=== PATIENT | male | born 1970 | race Caucasian/White ===

== ENCOUNTER 2017-06-18 16:53 | Inpatient (IN) | payer BC, OTHER ==
[~2017-06-18] VITALS: Ht 177.8 cm; Wt 73.2 kg
[2017-06-18] MEDS ORDERED: ASPIRIN 81 MG TABLET CHEW PO ONE (17:00)
[2017-06-18] MEDS ORDERED: SODIUM CHLORIDE FLUSH 10ML SYR IVF ONE (17:00)
[2017-06-18] MEDS ORDERED: ONDANSETRON 2MG/ML, 2ML ONE (17:20)
[2017-06-18] MEDS ORDERED: ASPIRIN 81 MG TABLET CHEW ONE (17:21)
[2017-06-18] MEDS ORDERED: MORPHINE SULFATE 4 MG/ML, 1ML ONE (17:21)
[2017-06-18] MEDS ORDERED: LORazepam 2 MG/ML, 1ML ONE (17:21)
[2017-06-18] MEDS ORDERED: LORazepam 2 MG/ML, 1ML IVPush ONE (17:30)
[2017-06-18] MEDS ORDERED: MORPHINE SULFATE 4 MG/ML, 1ML IVPush PRN (17:30)
[2017-06-18 17:34] LABS: BASOPHILS # (AUTO) 0.08 x10^3/uL (0-0.1); BASOPHILS % (AUTO) 1 % (0-1); EOSINOPHILS # (AUTO) 0.21 x10^3/uL (0-0.4); EOSINOPHILS % (AUTO) 1 % (1-7); LYMPHOCYTES # (AUTO) 3.64 x10^3/uL (1-3.4); LYMPHOCYTES % (AUTO) 23 % (22-44); MD NO; MEAN CORPUSCULAR HEMOGLOBIN 33.6 pg (27.5-34.5); MEAN CORPUSCULAR HGB CONC 33.7 g/dL (33.2-36.2); MEAN CORPUSCULAR VOLUME 99.6 fL (81-97); MEAN PLATELET VOLUME 8.6 fL (7.4-10.4); MONOCYTES # (AUTO) 1.03 x10^3/uL (0.2-0.8); MONOCYTES % (AUTO) 6 % (2-9); NEUTROPHILS # (AUTO) 11.13 x10^3/uL (1.8-6.8); NEUTROPHILS % (AUTO) 69 % (42-75); PLATELET COUNT 253 x10^3/uL (130-400); RED BLOOD COUNT 5.52 x10^6/uL (4.38-5.82); RED CELL DISTRIBUTION WIDTH 12.9 % (9.4-14.8)
[2017-06-18] MEDS ORDERED: EFAV1TAB PO (17:36)
[2017-06-18 17:46] LABS: ALANINE AMINOTRANSFERASE 62 U/L (12-78); ANION GAP 9 mmol/L (5-15); CALCIUM 9.4 mg/dL (8.5-10.1); CHLORIDE 103 mmol/L (98-107); CREATININE 1.17 mg/dL (0.7-1.3)
[2017-06-18 17:51] LABS: ALKALINE PHOSPHATASE 137 U/L (45-117); BILIRUBIN,TOTAL 0.4 mg/dL (0.2-1.0); TOTAL PROTEIN 8.7 g/dL (6.4-8.2)
[2017-06-18 17:52] LABS: TROPONIN I 0.368 ng/mL (0.000-0.045)
[2017-06-18] MEDS ORDERED: BIVALIRUDIN 250 MG ONE ×2 (18:00→18:57)
[2017-06-18] MEDS ORDERED: ONDANSETRON 2MG/ML, 2ML IVPush ONE (18:00)
[2017-06-18] MEDS ORDERED: FENTANYL PF 100 MCG/2ML ONE (18:00)
[2017-06-18] MEDS ORDERED: VERAPAMIL 2.5 MG/ML, 2ML ONE (18:00)
[2017-06-18] MEDS ORDERED: TICAGRELOR 90 MG TABLET ONE (18:00)
[2017-06-18] MEDS ORDERED: MIDAZOLAM 1 MG/ML, 5ML ONE (18:00)
[2017-06-18] MEDS ORDERED: BUPIVACAINE 0.25% ONE (18:01)
[2017-06-18] MEDS ORDERED: HEPARIN 1,000 UNITS/ML, 10ML ONE (18:01)
[2017-06-18] MEDS ORDERED: ASPIRIN 325 MG TABLET EC ONE (18:45)
[2017-06-18] MEDS ORDERED: BIVALIRUDIN 250 MG in DEXTROSE 5% 50 ML IV SCH (18:48)
[2017-06-18 18:56] VITALS: BP 100/73
[2017-06-18] MEDS ORDERED: ONDANSETRON 2MG/ML, 2ML IVPush PRN (19:00)
[2017-06-18] MEDS ORDERED: ZOLPIDEM 5MG TABLET PO PRN (19:00)
[2017-06-18] MEDS ORDERED: ACETAMINOPHEN 325 MG TABLET PO PRN (19:00)
[2017-06-18] MEDS: METOPROLOL TARTRATE 25 MG TABLET PO SCH (20:24)
[2017-06-18] MEDS: ATORVASTATIN 80 MG TABLET PO SCH (20:55)
[2017-06-18] MEDS: TICAGRELOR 90 MG TABLET PO SCH (20:56)
[2017-06-18] MEDS: EFAVIRENZ/EMTRICITAB/TENOFOVIR 600MG-200MG-300MG TABLET PO SCH (20:56)
[2017-06-18 21:08] VITALS: BP 106/73
[2017-06-19 04:00] VITALS: BP 91/60
[2017-06-19 04:44] LABS: ALBUMIN 3.4 g/dL (3.4-5.0); ANION GAP 6 mmol/L (5-15); CALCIUM 8.6 mg/dL (8.5-10.1); CHLORIDE 107 mmol/L (98-107); CREATININE 0.99 mg/dL (0.7-1.3)
[2017-06-19] MEDS: METOPROLOL TARTRATE 25 MG TABLET PO SCH ×3 (06:26→20:34)
[2017-06-19] MEDS: TICAGRELOR 90 MG TABLET PO SCH ×2 (08:07→21:39)
[2017-06-19] MEDS: ASPIRIN 81 MG TABLET EC PO SCH (08:07)
[2017-06-19] MEDS: NICOTINE 21 MG/24 HR PATCH.TD24 TD SCH (08:07)
[2017-06-19] MEDS ORDERED: LOSARTAN 25MG TABLET PO SCH (11:00)
[2017-06-19 11:10] VITALS: BP 113/76
[2017-06-19 12:42] VITALS: BP 125/79
[2017-06-19 18:20] VITALS: BP 86/61
[2017-06-19 19:48] VITALS: BP 84/56
[2017-06-19] MEDS: ATORVASTATIN 80 MG TABLET PO SCH (21:39)
[2017-06-19] MEDS: EFAVIRENZ/EMTRICITAB/TENOFOVIR 600MG-200MG-300MG TABLET PO SCH (21:39)
[2017-06-20 01:15] VITALS: BP 91/60
[2017-06-20 05:34] LABS: BASOPHILS # (AUTO) 0.02 x10^3/uL (0-0.1); BASOPHILS % (AUTO) 0 % (0-1); EOSINOPHILS # (AUTO) 0.19 x10^3/uL (0-0.4); EOSINOPHILS % (AUTO) 2 % (1-7); LYMPHOCYTES # (AUTO) 2.09 x10^3/uL (1-3.4); LYMPHOCYTES % (AUTO) 17 % (22-44); MD NO; MEAN CORPUSCULAR HEMOGLOBIN 33.1 pg (27.5-34.5); MEAN CORPUSCULAR HGB CONC 33.5 g/dL (33.2-36.2); MEAN CORPUSCULAR VOLUME 98.9 fL (81-97); MEAN PLATELET VOLUME 8.7 fL (7.4-10.4); MONOCYTES # (AUTO) 0.86 x10^3/uL (0.2-0.8); MONOCYTES % (AUTO) 7 % (2-9); NEUTROPHILS # (AUTO) 9.21 x10^3/uL (1.8-6.8); NEUTROPHILS % (AUTO) 74 % (42-75); PLATELET COUNT 186 x10^3/uL (130-400); RED BLOOD COUNT 4.97 x10^6/uL (4.38-5.82); RED CELL DISTRIBUTION WIDTH 12.6 % (9.4-14.8)
[2017-06-20 05:43] LABS: ANION GAP 6 mmol/L (5-15); CALCIUM 8.7 mg/dL (8.5-10.1); CHLORIDE 106 mmol/L (98-107)
[2017-06-20 06:14] VITALS: BP 95/65
[2017-06-20] MEDS: METOPROLOL TARTRATE 25 MG TABLET PO SCH ×2 (06:21→17:52)
[2017-06-20 07:00] VITALS: BP 89/57
[2017-06-20] MEDS: ASPIRIN 81 MG TABLET EC PO SCH (08:17)
[2017-06-20] MEDS: TICAGRELOR 90 MG TABLET PO SCH ×2 (08:17→21:18)
[2017-06-20] MEDS: NICOTINE 21 MG/24 HR PATCH.TD24 TD SCH (08:18)
[2017-06-20] MEDS ORDERED: LOSARTAN 25MG TABLET PO SCH (09:00)
[2017-06-20] MEDS: LOSARTAN 25MG TABLET PO SCH (11:00)
[2017-06-20 15:52] VITALS: BP 98/65
[2017-06-20 17:53] VITALS: BP 100/54
[2017-06-20 21:16] VITALS: BP 98/65
[2017-06-20] MEDS: EFAVIRENZ/EMTRICITAB/TENOFOVIR 600MG-200MG-300MG TABLET PO SCH (21:18)
[2017-06-20] MEDS: ATORVASTATIN 80 MG TABLET PO SCH (21:18)
[2017-06-21 01:35] VITALS: BP 104/70
[2017-06-21 06:28] VITALS: BP 100/65
[2017-06-21] MEDS: METOPROLOL TARTRATE 25 MG TABLET PO SCH (06:29)
[2017-06-21] MEDS: TICAGRELOR 90 MG TABLET PO SCH ×2 (07:27→18:55)
[2017-06-21] MEDS: LOSARTAN 25MG TABLET PO SCH (07:27)
[2017-06-21] MEDS: ASPIRIN 81 MG TABLET EC PO SCH (07:27)
[2017-06-21] MEDS: NICOTINE 21 MG/24 HR PATCH.TD24 TD SCH (07:27)
[2017-06-21 08:00] VITALS: BP 106/73
[2017-06-21] MEDS ORDERED: METOPROLOL TARTRATE 25 MG TABLET PO SCH ×2 (13:00→18:00)
[2017-06-21 13:12] VITALS: BP 100/69
[2017-06-21 15:13] VITALS: BP 103/70
[2017-06-21] MEDS ORDERED: TICA90TA PO (16:59)
[2017-06-21] MEDS ORDERED: ATOR-2 PO (16:59)
[2017-06-21] MEDS ORDERED: LOSA25TA2 PO (16:59)
[2017-06-21] MEDS ORDERED: ASPI-621 PO (16:59)
[2017-06-21] MEDS ORDERED: METO25TA35 PO (16:59)
[2017-06-21 18:42] VITALS: BP 99/64
[2017-06-21] MEDS: ATORVASTATIN 80 MG TABLET PO SCH (18:55)
== END 2017-06-21 19:25 | disposition home or self-care (01) | DRG 247 ==
LOC: ED 17:50 → EDIP 17:51 → ED 18:51 → CCU 18:57 → 5SO 06-19 11:10
PROVIDERS: ADMIT Internal Medicine Cardiovascular Disease; ATTEND Hospitalist
PROC: 027034Z Dilation of Coronary Artery, One Artery with Drug-eluting Intraluminal Device, Percutaneous Approach (ICD-10-PCS; principal; 2017-06-18)
DX: I21.09 ST elevation (STEMI) myocardial infarction involving other coronary artery of anterior wall (principal); I47.2 Ventricular tachycardia; F17.210 Nicotine dependence, cigarettes, uncomplicated; Z82.49 Family history of ischemic heart disease and other diseases of the circulatory system; Z98.61 Coronary angioplasty status; Z71.6 Tobacco abuse counseling
CPT/HCPCS: 36415; 71045; 80048; 80053; 82040; 83735; 84484; 85018; 85025; 87081; 93005; 93306; 93454; 96374; 96375; 99156; C1760; C1894; J0583; J1644; J2250; J2405; J3010; J3490; C1725; C1769; C1874; C1887; J2060; Q9967

== ENCOUNTER 2020-01-17 23:48 | Inpatient (IN) | payer BC, OTHER ==
[~2020-01-17] VITALS: Ht 177.8 cm; Wt 75.5 kg
[~2020-01-17 23:48] MED LIST: ASPI81TA45 PO; ATOR-2 PO; EFAV1TAB PO; LOSA25TA2 PO; METO25TA35 PO; TICA90TA PO
[2020-01-17] MEDS ORDERED: MORPHINE SULFATE 4 MG/ML, 1ML ONE (23:51)
--- NOTE | 2020-01-18 00:04 | NUR ---
PT BIB AMBULANCE AT 2348 WITH A PRE-STEMI ALERT. PT WITH PMH INCLUDING STEMI. PER EMS, PT WAS GIVEN [address] TO [facility] AND [address]. UPON ARRIVAL TO [facility] ED, 2ND PIV ACCESS ESTABLISHED AND LABS DRAWN. PT UNDRESSED AND CHANGED INTO YELLOW GOWN. PT ATTACHED TO TRANSLUCENT DEFIB PADS, AND CODE CARDIAC PROCEDURE FOLLOWED. DR YODER AT BS. TECH AT BS FOR EKG. PT EDUCATED ON ER PROCESS AND POC AND VERBALIZES UNDERSTANDING. PT ON ALL MONITORS WITH THIS RN AT BS. PT HAS CALL LIGHT WITHIN REACH. DR ROSE AND WET FINISHER NOTIFIED. AWAITING CONFIRMATION OF PT TO WET FINISHER AT THIS TIME. PT MEDICATED WITH 4 MG OF IV MORPHINE AT THIS TIME.
[2020-01-18 00:09] LABS: BASOPHILS % (AUTO) 2 % (0-1); EOSINOPHILS % (AUTO) 2 % (1-7); LYMPHOCYTES % (AUTO) 33 % (22-44); MEAN CORPUSCULAR HEMOGLOBIN 32.6 pg (27.5-34.5); MEAN CORPUSCULAR HGB CONC 33.9 g/dL (33.2-36.2); MEAN PLATELET VOLUME 8.1 fL (7.4-10.4); MONOCYTES % (AUTO) 10 % (2-9); NEUTROPHILS % (AUTO) 54 % (42-75); PLATELET COUNT 300 x10^3/uL (130-400); RED CELL DISTRIBUTION WIDTH 13.4 % (9.4-14.8)
[2020-01-18 00:15] LABS: INTERNATIONAL NORMALIZED RATIO 0.98 (0.93-1.1); PROTHROMBIN TIME 10.4 Seconds (9.6-11.5)
--- NOTE | 2020-01-18 00:17 | NUR ---
DR ROSE AT TO DISCUSS POC WITH PATIENT.
[2020-01-18 00:18] LABS: TROPONIN I < 0.015 ng/mL (0.000-0.045)
--- NOTE | 2020-01-18 00:18 | NUR ---
PT SPOUSE AT BS AT THIS TIME.
[2020-01-18] MEDS ORDERED: FENTANYL PF 100 MCG/2ML ONE (00:24)
[2020-01-18] MEDS ORDERED: MIDAZOLAM 1 MG/ML, 5ML ONE (00:24)
[2020-01-18] MEDS ORDERED: LIDOCAINE 2%, 20ML ONE (00:25)
[2020-01-18] MEDS ORDERED: HEPARIN 1,000 UNITS/ML, 10ML ONE (00:25)
[2020-01-18] MEDS ORDERED: VERAPAMIL 2.5 MG/ML, 2ML ONE (00:25)
[2020-01-18] MEDS ORDERED: TICAGRELOR 90 MG TABLET ONE (00:25)
[2020-01-18] MEDS ORDERED: BIVALIRUDIN 250 MG ONE (00:25)
[2020-01-18] MEDS ORDERED: NITROGLYCERIN 30 MCG/ML, 20ML VIAL ONE (00:25)
--- NOTE | 2020-01-18 00:29 | NUR ---
PT TRANSPORTED TO [facility] AT THIS TIME. PT OUTSIDE OF CULINARY INTERN WAITING ROOM. CULINARY INTERN RN GIVEN REPORT BY THIS RN. ALL QUESTIONS ANSWERED.
[2020-01-18] MEDS ORDERED: MORPHINE SULFATE 4 MG/ML, 1ML IVPush ONE (00:30)
[2020-01-18 00:36] LABS: MD SCAN
[2020-01-18] MEDS: ATORVASTATIN 80 MG TABLET PO SCH ×2 (02:00→20:18)
[2020-01-18] MEDS: ISOSORBIDE MONONITRATE ER 30 MG TABLET PO SCH ×2 (02:00→08:43)
[2020-01-18] MEDS ORDERED: SODIUM CHLORIDE 0.9% 1,000 ML IV SCH (02:00)
[2020-01-18] MEDS: METOPROLOL TARTRATE 25 MG TAB PO SCH ×3 (02:01→17:50)
[2020-01-18 03:04] VITALS: BP 117/78
[2020-01-18 04:44] LABS: BASOPHILS % (AUTO) 1 % (0-1); EOSINOPHILS % (AUTO) 0 % (1-7); LYMPHOCYTES % (AUTO) 8 % (22-44); MEAN CORPUSCULAR HEMOGLOBIN 32.5 pg (27.5-34.5); MEAN CORPUSCULAR HGB CONC 33.7 g/dL (33.2-36.2); MONOCYTES % (AUTO) 5 % (2-9); NEUTROPHILS % (AUTO) 86 % (42-75); PLATELET COUNT 238 x10^3/uL (130-400); RED BLOOD COUNT 5.14 x10^6/uL (4.38-5.82); RED CELL DISTRIBUTION WIDTH 13.1 % (9.4-14.8)
[2020-01-18 04:57] LABS: ALBUMIN 3.3 g/dL (3.4-5.0); ANION GAP 7 mmol/L (5-15); CALCIUM 8.4 mg/dL (8.5-10.1); CHLORIDE 106 mmol/L (98-107)
[2020-01-18 05:01] LABS: ALANINE AMINOTRANSFERASE 61 U/L (12-78); ALKALINE PHOSPHATASE 107 U/L (45-117); BILIRUBIN,TOTAL 0.4 mg/dL (0.2-1.0); CHOL/HDL RATIO 4.6; CHOLESTEROL, TOTAL 161 mg/dL (140-239); CREATININE 1.21 mg/dL (0.7-1.3); HDL CHOL % 22 % (26-37); HDL CHOLESTEROL (DIRECT) 35 mg/dL (40-60); LDL CHOLESTEROL,CALCULATED 68 mg/dL (54-169); LDL/HDL RATIO 1.9 (0.5-3.0); TOTAL PROTEIN 7.1 g/dL (6.4-8.2); TRIGLYCERIDES 290 mg/dL (50-200); VLDL CHOLESTEROL 58 mg/dL (0-25)
[2020-01-18 05:55] LABS: MD SCAN
[2020-01-18] MEDS ORDERED: POTASSIUM CHLORIDE 20 MEQ TAB.ER.PRT PO ONE (07:30)
[2020-01-18] MEDS: TICAGRELOR 90 MG TABLET PO SCH ×2 (08:43→20:18)
[2020-01-18] MEDS: ASPIRIN 81 MG TABLET EC PO SCH (08:43)
[2020-01-18 09:00] VITALS: BP 94/52
[2020-01-18 14:01] VITALS: BP 101/67
[2020-01-18 17:55] VITALS: BP 102/62
[2020-01-18 19:35] VITALS: BP 96/60
[2020-01-18] MEDS ORDERED: EFAVIRENZ/EMTRICITAB/TENOFOVIR 600MG-200MG-300MG TABLET PO SCH (21:00)
[2020-01-19 02:07] VITALS: BP 98/66
[2020-01-19 05:17] LABS: ANION GAP 5 mmol/L (5-15); CALCIUM 8.8 mg/dL (8.5-10.1); CHLORIDE 108 mmol/L (98-107); CREATININE 1.12 mg/dL (0.7-1.3)
[2020-01-19] MEDS: METOPROLOL TARTRATE 25 MG TAB PO SCH (06:11)
[2020-01-19 07:43] VITALS: BP 103/68
[2020-01-19] MEDS: ISOSORBIDE MONONITRATE ER 30 MG TABLET PO SCH (08:38)
[2020-01-19] MEDS: ASPIRIN 81 MG TABLET EC PO SCH (08:38)
[2020-01-19] MEDS: TICAGRELOR 90 MG TABLET PO SCH (08:38)
[2020-01-19] MEDS ORDERED: METO25TA35 PO (09:05)
[2020-01-19] MEDS ORDERED: ISOS30TA8 PO (09:05)
[2020-01-19] MEDS ORDERED: ATOR-2 PO (09:05)
[2020-01-19] MEDS ORDERED: TICA90TA PO (09:05)
[2020-01-19] MEDS ORDERED: ASPI81TA45 PO (09:05)
[2020-01-19] MEDS ORDERED: FLU VACC QS2020-21(6MOS UP)/PF 60MCG/0.5 ML SYR IM ONE (10:00)
== END 2020-01-19 10:44 | disposition home or self-care (01) | DRG 246 ==
LOC: ED 01-18 01:18 → EDIP 01-18 01:26 → CSU 01-18 01:29 → 5SO 01-18 13:00 → DCLOUNGE 01-19 10:34
PROVIDERS: ADMIT Family Medicine; ATTEND Internal Medicine
PROC: 027034Z Dilation of Coronary Artery, One Artery with Drug-eluting Intraluminal Device, Percutaneous Approach (ICD-10-PCS; principal; 2020-01-18)
PROC: 4A023N7 Measurement of Cardiac Sampling and Pressure, Left Heart, Percutaneous Approach (ICD-10-PCS; 2020-01-18)
PROC: B2111ZZ Fluoroscopy of Multiple Coronary Arteries using Low Osmolar Contrast (ICD-10-PCS; 2020-01-18)
DX: I21.02 ST elevation (STEMI) myocardial infarction involving left anterior descending coronary artery (principal); I50.41 Acute combined systolic (congestive) and diastolic (congestive) heart failure; Z20.828 Contact with and (suspected) exposure to other viral communicable diseases; D72.829 Elevated white blood cell count, unspecified; E78.1 Pure hyperglyceridemia; I25.10 Atherosclerotic heart disease of native coronary artery without angina pectoris; Z91.19 Patient's noncompliance with other medical treatment and regimen; Z82.49 Family history of ischemic heart disease and other diseases of the circulatory system; I25.5 Ischemic cardiomyopathy; I25.2 Old myocardial infarction; I11.0 Hypertensive heart disease with heart failure; F17.210 Nicotine dependence, cigarettes, uncomplicated; E87.5 Hyperkalemia; E78.5 Hyperlipidemia, unspecified; Z68.23 Body mass index [BMI] 23.0-23.9, adult
CPT/HCPCS: 36415; 93458; J3490; 71045; 80047; 80048; 80053; 80061; 84484; 85014; 85018; 85025; 85610; 85730; 87081; 87635; 90686; 93005; 93306; 93356; 99156; 99157; C1769; C1894; G0378; J0583; J1644; J2250; J3010; C1725; C1874; C1887; J2270; J7030; Q9967

== ENCOUNTER 2020-10-06 20:42 | Inpatient (IN) | payer MEDICAID, OTHER ==
[~2020-10-06] VITALS: Ht 177.8 cm; Wt 77.7 kg
[~2020-10-06 20:42] MED LIST changes: +ISOS30TA8 PO
--- NOTE | 2020-10-06 21:27 | NUR ---
SALES PERFORMANCE ANALYST: PT. TO ROOM FROM LOBBY AT THIS TIME. AMBULATORY WITH STEADY GAIT.
--- NOTE | 2020-10-06 21:35 | NUR ---
PT AMBULATED TO ROOM, STEADY GAIT, NO ACUTE DISTRESS, AND NO WEAKNESS NOTED TO EXTREMITIES AT THIS TIME. PT ON CR MONITOR, AND RESTING COMFORTABLY AND MD TO SEE PT.
[2020-10-06 22:12] LABS: BASOPHILS % (AUTO) 0 % (0-1); EOSINOPHILS % (AUTO) 2 % (1-7); LYMPHOCYTES % (AUTO) 18 % (22-44); MEAN CORPUSCULAR HEMOGLOBIN 33.5 pg (27.5-34.5); MEAN CORPUSCULAR HGB CONC 35.1 g/dL (33.2-36.2); MEAN PLATELET VOLUME 8.2 fL (7.4-10.4); MONOCYTES % (AUTO) 8 % (2-9); NEUTROPHILS % (AUTO) 72 % (42-75); PLATELET COUNT 254 x10^3/uL (130-400); RED BLOOD COUNT 4.89 x10^6/uL (4.38-5.82); RED CELL DISTRIBUTION WIDTH 12.8 % (9.4-14.8)
[2020-10-06 22:24] LABS: ALANINE AMINOTRANSFERASE 80 U/L (12-78); ALBUMIN 3.4 g/dL (3.4-5.0); ANION GAP 6 mmol/L (5-15); CHLORIDE 105 mmol/L (98-107); CREATININE 0.99 mg/dL (0.7-1.3)
[2020-10-06 22:26] LABS: ALKALINE PHOSPHATASE 145 U/L (45-117); BILIRUBIN,TOTAL 0.4 mg/dL (0.2-1.0); CREATINE KINASE, TOTAL 102 U/L (39-308); TOTAL PROTEIN 7.8 g/dL (6.4-8.2)
[2020-10-06 22:28] LABS: MICROSCOPIC AUTO
[2020-10-07] VITALS (7 sets, daily range): BP systolic 95–120; BP diastolic 61–81
--- NOTE | 2020-10-07 00:02 | NUR ---
PIV STARTED TO LEFT HAND X1 ATTEMPT FOR MRI. 18G PLACED AND PT TOLERATED WELL, SECURED WITH TAPE AND FLUSHED EASILY. PT TAKEN TO MRI.
--- NOTE | 2020-10-07 00:34 | NUR ---
PT RETURNED FROM MRI, AND IN ROOM. NO ACUTE DISTRESS.
[2020-10-07] MEDS ORDERED: SODIUM CHLORIDE FLUSH 10ML SYR IVF PRN (02:00)
--- NOTE | 2020-10-07 02:12 | NUR ---
PT RESTING COMFORTABLY AT THIS TIME AND IN NO ACUTE DISTRESS. MD TO BEDSIDE TO EVAL AND SPEAK TO PT IN REGARDS TO HIS TEST RESULTS. PT TO BE ADMITTED TO ICU.
--- NOTE | 2020-10-07 03:18 | NUR ---
PTS ADMISSION STATUS CHANGED FROM ICU TO MED/TELE. WAITING FOR ROOM TO FINISH BEING CLEANED. PT A&OX4, NO ACUTE DISTRESS, RESTING IN ROOM 11.
--- NOTE | 2020-10-07 04:07 | NUR ---
PT PROVIDED A HOSPITAL BED AND SWITCHED OUT FROM THE ER [facility]. PT AMBULATORY AND ASSISTED IN CHANGING BED. PT A&OX4, NO ACUTE DISTRESS AT THIS TIME, AND NO NEURO DEFICIT AT THIS TIME. OR THROUGHOUT PTS CURRENT STAY.
--- NOTE | 2020-10-07 04:52 | NUR ---
PT TRANSFERRED TO FLOOR IN HIS HOSPITAL BED, WITHOUT ISSUE. PT A&OX4, IV SITE INTACT AND TAPED AND PT RESTING.
[2020-10-07] MEDS ORDERED: LABETALOL 5MG/ML, 20ML IVPush PRN (05:00)
[2020-10-07] MEDS ORDERED: ACETAMINOPHEN 325 MG TABLET PO PRN (05:00)
[2020-10-07] MEDS ORDERED: ONDANSETRON 2MG/ML, 2ML IVPush PRN (05:00)
[2020-10-07] MEDS ORDERED: LOSA50TA14 PO (05:12)
[2020-10-07] MEDS ORDERED: OMNIPAQUE 350 MG/ML, 100ML BOTTLE ONE (10:35)
[2020-10-07] MEDS ORDERED: ISOSORBIDE MONONITRATE ER 30 MG TABLET PO SCH (11:00)
[2020-10-07] MEDS: LEVETIRACETAM 500 MG TABLET PO SCH ×2 (12:43→21:33)
[2020-10-07] MEDS: DEXAMETHASONE 4 MG TABLET PO SCH ×3 (12:43→21:34)
[2020-10-07] MEDS: METOPROLOL TARTRATE 25 MG TAB PO SCH ×2 (12:43→18:00)
[2020-10-07] MEDS: LOSARTAN 50MG TABLET PO SCH (12:43)
[2020-10-07] MEDS: ATORVASTATIN 80 MG TABLET PO SCH (21:34)
[2020-10-07] MEDS: EFAVIRENZ/EMTRICITAB/TENOFOVIR 600MG-200MG-300MG TABLET PO SCH (21:34)
[2020-10-08 04:06] VITALS: BP 107/71
[2020-10-08] MEDS: METOPROLOL TARTRATE 25 MG TAB PO SCH ×2 (05:41→17:45)
[2020-10-08] MEDS: DEXAMETHASONE 4 MG TABLET PO SCH ×4 (05:41→21:36)
[2020-10-08 06:31] LABS: EOSINOPHILS % (AUTO) 0 % (1-7); LYMPHOCYTES % (AUTO) 9 % (22-44); MONOCYTES % (AUTO) 4 % (2-9); NEUTROPHILS % (AUTO) 87 % (42-75); RED CELL DISTRIBUTION WIDTH 12.7 % (9.4-14.8)
[2020-10-08 06:34] LABS: CHLORIDE 107 mmol/L (98-107)
[2020-10-08 06:38] LABS: BASOPHILS % (AUTO) 0 % (0-1); MEAN CORPUSCULAR HEMOGLOBIN 32.8 pg (27.5-34.5); MEAN CORPUSCULAR HGB CONC 33.9 g/dL (33.2-36.2); MEAN PLATELET VOLUME 8.6 fL (7.4-10.4); PLATELET COUNT 277 x10^3/uL (130-400); RED BLOOD COUNT 5.13 x10^6/uL (4.38-5.82)
[2020-10-08 06:51] LABS: ALANINE AMINOTRANSFERASE 82 U/L (12-78); ALBUMIN 3.3 g/dL (3.4-5.0); ALKALINE PHOSPHATASE 142 U/L (45-117); ANION GAP 9 mmol/L (5-15); BILIRUBIN,TOTAL 0.6 mg/dL (0.2-1.0); CALCIUM 9.4 mg/dL (8.5-10.1); CREATININE 0.99 mg/dL (0.7-1.3)
[2020-10-08] MEDS: LOSARTAN 50MG TABLET PO SCH (09:00)
[2020-10-08 09:13] VITALS: BP 108/72
[2020-10-08] MEDS: LEVETIRACETAM 500 MG TABLET PO SCH ×2 (09:14→21:36)
[2020-10-08 09:44] LABS: INTERNATIONAL NORMALIZED RATIO 0.98 (0.93-1.1); PROTHROMBIN TIME 10.5 Seconds (9.6-11.5)
[2020-10-08 11:34] VITALS: BP 100/67
[2020-10-08 17:05] VITALS: BP 104/69
[2020-10-08 19:30] VITALS: BP 105/67
[2020-10-08] MEDS: EFAVIRENZ/EMTRICITAB/TENOFOVIR 600MG-200MG-300MG TABLET PO SCH (21:34)
[2020-10-08] MEDS: ATORVASTATIN 80 MG TABLET PO SCH (21:36)
[2020-10-09 00:27] VITALS: BP 99/66
[2020-10-09 04:24] VITALS: BP 112/62
[2020-10-09] MEDS: DEXAMETHASONE 4 MG TABLET PO SCH ×4 (05:24→20:29)
[2020-10-09] MEDS: METOPROLOL TARTRATE 25 MG TAB PO SCH ×2 (05:24→17:30)
[2020-10-09 06:58] VITALS: BP 112/75
[2020-10-09] MEDS: LEVETIRACETAM 500 MG TABLET PO SCH ×2 (08:46→20:28)
[2020-10-09] MEDS: LOSARTAN 50MG TABLET PO SCH (08:46)
[2020-10-09 09:04] LABS: BASOPHILS % (AUTO) 0 % (0-1); EOSINOPHILS % (AUTO) 0 % (1-7); LYMPHOCYTES % (AUTO) 7 % (22-44); MEAN CORPUSCULAR HEMOGLOBIN 32.8 pg (27.5-34.5); MEAN PLATELET VOLUME 8.5 fL (7.4-10.4); MONOCYTES % (AUTO) 4 % (2-9); NEUTROPHILS % (AUTO) 89 % (42-75); PLATELET COUNT 303 x10^3/uL (130-400); RED BLOOD COUNT 4.95 x10^6/uL (4.38-5.82); RED CELL DISTRIBUTION WIDTH 12.8 % (9.4-14.8)
[2020-10-09 14:21] VITALS: BP 101/65
[2020-10-09 17:28] VITALS: BP 112/71
[2020-10-09 18:42] VITALS: BP 109/76
[2020-10-09] MEDS: ATORVASTATIN 80 MG TABLET PO SCH (20:28)
[2020-10-09] MEDS: EFAVIRENZ/EMTRICITAB/TENOFOVIR 600MG-200MG-300MG TABLET PO SCH (20:29)
[2020-10-09] MEDS: METHOCARBAMOL 750 MG TABLET PO PRN (21:01)
[2020-10-10] VITALS (8 sets, daily range): BP systolic 97–121; BP diastolic 60–84
[2020-10-10] MEDS: DEXAMETHASONE 4 MG TABLET PO SCH ×4 (05:22→21:40)
[2020-10-10] MEDS: METOPROLOL TARTRATE 25 MG TAB PO SCH ×2 (05:23→17:07)
[2020-10-10] MEDS: LOSARTAN 50MG TABLET PO SCH (08:39)
[2020-10-10] MEDS: LEVETIRACETAM 500 MG TABLET PO SCH ×2 (08:39→21:40)
[2020-10-10] MEDS ORDERED: GADOTERATE 7.5 MMOL/15ML SYR ONE (13:55)
[2020-10-10] MEDS: ATORVASTATIN 80 MG TABLET PO SCH (21:39)
[2020-10-10] MEDS: METHOCARBAMOL 750 MG TABLET PO PRN (21:40)
[2020-10-10] MEDS: EFAVIRENZ/EMTRICITAB/TENOFOVIR 600MG-200MG-300MG TABLET PO SCH (22:22)
[2020-10-11] VITALS (7 sets, daily range): BP systolic 98–124; BP diastolic 60–86
[2020-10-11] MEDS: METOPROLOL TARTRATE 25 MG TAB PO SCH ×2 (06:20→17:26)
[2020-10-11] MEDS: DEXAMETHASONE 4 MG TABLET PO SCH ×4 (06:20→20:28)
[2020-10-11] MEDS: LEVETIRACETAM 500 MG TABLET PO SCH ×2 (10:49→20:28)
[2020-10-11] MEDS: LOSARTAN 50MG TABLET PO SCH (10:49)
[2020-10-11] MEDS: EFAVIRENZ/EMTRICITAB/TENOFOVIR 600MG-200MG-300MG TABLET PO SCH (20:28)
[2020-10-11] MEDS: ATORVASTATIN 80 MG TABLET PO SCH (20:28)
[2020-10-11] MEDS ORDERED: MELATONIN 5 MG TABLET PO PRN (23:00)
[2020-10-12 03:55] VITALS: BP 102/65
[2020-10-12 05:12] LABS: MEAN CORPUSCULAR HEMOGLOBIN 33.4 pg (27.5-34.5); MEAN CORPUSCULAR HGB CONC 34.4 g/dL (33.2-36.2); MEAN PLATELET VOLUME 8.6 fL (7.4-10.4); PLATELET COUNT 302 x10^3/uL (130-400); RED BLOOD COUNT 4.91 x10^6/uL (4.38-5.82)
[2020-10-12 05:21] LABS: ANION GAP 7 mmol/L (5-15); CALCIUM 8.5 mg/dL (8.5-10.1); CHLORIDE 104 mmol/L (98-107); CREATININE 0.81 mg/dL (0.7-1.3)
[2020-10-12 06:25] LABS: LYMPH#(MANUAL) 0.62 x10^3/uL (1-3.4); LYMPHS% (MANUAL) 3 % (22-44); MONOS#(MANUAL) 2.07 x10^3/uL (0.3-2.7); MONOS% (MANUAL) 10 % (2-9); MYELOCYTES# (MANUAL) 0.21 x10^3/uL (0-0); MYELOCYTES% (MANUAL) 1 % (0-0); SEGS% (MANUAL) 86 % (42-75)
[2020-10-12 06:29] LABS: <PLATELET ESTIMATE> ADEQUATE; <PLT MORPHOLOGY> NORMAL PLT MORPH
[2020-10-12 06:40] VITALS: BP 98/64
[2020-10-12] MEDS: METOPROLOL TARTRATE 25 MG TAB PO SCH ×2 (06:40→18:40)
[2020-10-12] MEDS: DEXAMETHASONE 4 MG TABLET PO SCH ×3 (06:43→16:00)
[2020-10-12] MEDS ORDERED: EPHEDRINE 50 MG/ML, 1ML IVPush PRN (08:00)
[2020-10-12] MEDS ORDERED: FENTANYL PF 100 MCG/2ML IV PRN (08:00)
[2020-10-12] MEDS ORDERED: ACETAMINOPHEN 325 MG TABLET PO PRN (08:00)
[2020-10-12] MEDS ORDERED: ONDANSETRON 2MG/ML, 2ML IVPush PRN (08:00)
[2020-10-12] MEDS ORDERED: HYDROmorphone 1 MG/ML, 1ML INJ IVPush PRN (08:00)
[2020-10-12] MEDS ORDERED: LABETALOL 5MG/ML, 20ML IV PRN ×2 (08:00→19:00)
[2020-10-12] MEDS ORDERED: hydrALAzine 20 MG/ML, 1ML IV PRN (08:00)
[2020-10-12] MEDS ORDERED: PROMETHAZINE 25 MG/ML, 1ML IVPush PRN (08:00)
[2020-10-12] MEDS ORDERED: OXYcodone 5 MG/5 ML ORAL.SOL UDC PO PRN (08:00)
[2020-10-12] MEDS: LOSARTAN 50MG TABLET PO SCH (08:59)
[2020-10-12] MEDS: LEVETIRACETAM 500 MG TABLET PO SCH ×2 (09:00→20:48)
[2020-10-12 09:01] VITALS: BP 102/70
[2020-10-12] MEDS ORDERED: BUPIVACAINE/PF 0.5% ONE ×2 (11:22→15:09)
[2020-10-12] MEDS ORDERED: GENTAMICIN 80 MG/2 ML ONE (11:23)
[2020-10-12] MEDS ORDERED: EPINEPHRINE 1 MG/ML, 1ML ONE ×2 (11:23→15:09)
[2020-10-12] MEDS ORDERED: CEFAZOLIN 1,000 MG ONE ×2 (11:23→16:34)
[2020-10-12] MEDS ORDERED: THROMBIN 20,000 UNIT VIAL TP ONE ×2 (11:23→15:09)
[2020-10-12 12:25] VITALS: BP 91/61
[2020-10-12 13:54] VITALS: BP 93/58
[2020-10-12] MEDS ORDERED: CHLORHEXIDINE 15 ML UDC ONE (14:50)
[2020-10-12] MEDS ORDERED: CHLORHEXIDINE 15 ML UDC PO ONE (15:00)
[2020-10-12] MEDS ORDERED: MIDAZOLAM 1 MG/ML, 2ML ONE (15:15)
[2020-10-12] MEDS ORDERED: FENTANYL PF 250 MCG/5ML ONE (15:16)
[2020-10-12] MEDS ORDERED: PROPOFOL 10 MG/ML, 20ML ONE (16:34)
[2020-10-12] MEDS ORDERED: DEXAMETHASONE 4 MG/ML, 1ML ONE (16:34)
[2020-10-12] MEDS ORDERED: ROCURONIUM 10MG/ML,5ML ONE ×2 (16:34→16:51)
[2020-10-12] MEDS ORDERED: ONDANSETRON 2MG/ML, 2ML ONE (16:34)
[2020-10-12] MEDS ORDERED: SUCCINYLCHOLINE 20 MG/ML, 10ML ONE (16:34)
[2020-10-12] MEDS ORDERED: PHENYLEPHRINE 10 MG/ML ONE (16:35)
[2020-10-12] MEDS ORDERED: SUGAMMADEX 200 MG/2 ML IVPush ONE (16:35)
[2020-10-12] MEDS ORDERED: OXYcodone/APAP 5/325MG TABLET PO PRN (19:00)
[2020-10-12] MEDS ORDERED: ONDANSETRON 2MG/ML, 2ML IV PRN (19:00)
[2020-10-12] MEDS ORDERED: morphine SULFATE 10 MG/ML, 1ML IV PRN (19:00)
[2020-10-12] MEDS ORDERED: LABETALOL 250 MG in DEXTROSE 5% 200 ML IV PRN (19:00)
[2020-10-12] MEDS ORDERED: MAGNESIUM HYDROXIDE 8%, 30ML UDC PO PRN (19:00)
[2020-10-12] MEDS ORDERED: BISACODYL 10 MG SUPP PR PRN (19:00)
[2020-10-12] MEDS ORDERED: LEVETIRACETAM 500 MG in SODIUM CHLORIDE 0.9% 100 ML IV SCH (20:00)
[2020-10-12] MEDS: ATORVASTATIN 80 MG TABLET PO SCH (20:48)
[2020-10-12] MEDS: DEXAMETHASONE 4 MG/ML, 1ML IV SCH (20:48)
[2020-10-12] MEDS: CEFAZOLIN PMX 1GM/50ML 50 ML IVPB SCH (20:48)
[2020-10-12] MEDS: NS + 20MEQ KCL 1,000 ML IV SCH (20:48)
[2020-10-12] MEDS: EFAVIRENZ/EMTRICITAB/TENOFOVIR 600MG-200MG-300MG TABLET PO SCH (20:48)
[2020-10-13] MEDS: DEXAMETHASONE 4 MG/ML, 1ML IV SCH ×4 (00:38→23:38)
[2020-10-13] MEDS: CEFAZOLIN PMX 1GM/50ML 50 ML IVPB SCH (03:44)
[2020-10-13] MEDS: NS + 20MEQ KCL 1,000 ML IV SCH ×2 (05:17→15:00)
[2020-10-13] MEDS: METOPROLOL TARTRATE 25 MG TAB PO SCH ×2 (06:03→17:31)
[2020-10-13 08:15] LABS: MEAN CORPUSCULAR HGB CONC 33.9 g/dL (33.2-36.2); MEAN PLATELET VOLUME 8.5 fL (7.4-10.4); PLATELET COUNT 302 x10^3/uL (130-400); RED BLOOD COUNT 4.83 x10^6/uL (4.38-5.82); RED CELL DISTRIBUTION WIDTH 12.6 % (9.4-14.8)
[2020-10-13 08:21] LABS: ANION GAP 5 mmol/L (5-15); CALCIUM 8.7 mg/dL (8.5-10.1); CHLORIDE 107 mmol/L (98-107); CREATININE 0.97 mg/dL (0.7-1.3)
[2020-10-13 08:31] LABS: <PLATELET ESTIMATE> ADEQUATE; <PLT MORPHOLOGY> NORMAL PLT MORPH; ANISOCYTOSIS 1+; BAND#(MANUAL) 0.35 x10^3/uL; BANDS%(MANUAL) 2 % (0-7); LYMPH#(MANUAL) 1.39 x10^3/uL (1-3.4); LYMPHS% (MANUAL) 8 % (22-44); MONOS#(MANUAL) 1.22 x10^3/uL (0.3-2.7); MONOS% (MANUAL) 7 % (2-9); REACTIVE LYMPHS # (MANUAL) 0.52 x10^3/uL (0-0); REACTIVE LYMPHS % (MANUAL) 3 % (0-0); SEG#(MANUAL) 13.92 x10^3/uL (1.8-6.8); SEGS% (MANUAL) 80 % (42-75)
[2020-10-13] MEDS: SENNA/DOCUSATE TABLET PO SCH (08:57)
[2020-10-13] MEDS: LEVETIRACETAM 500 MG TABLET PO SCH ×2 (08:58→21:04)
[2020-10-13] MEDS: LOSARTAN 50MG TABLET PO SCH (08:58)
[2020-10-13] MEDS: ACETAMINOPHEN 325 MG TABLET PO PRN ×2 (15:37→21:04)
[2020-10-13 19:23] VITALS: BP 110/70
[2020-10-13] MEDS: EFAVIRENZ/EMTRICITAB/TENOFOVIR 600MG-200MG-300MG TABLET PO SCH (21:04)
[2020-10-13] MEDS: ATORVASTATIN 80 MG TABLET PO SCH (21:04)
[2020-10-14 00:23] VITALS: BP 114/74
[2020-10-14 05:49] LABS: BASOPHILS % (AUTO) 0 % (0-1); EOSINOPHILS % (AUTO) 0 % (1-7); LYMPHOCYTES % (AUTO) 7 % (22-44); MEAN CORPUSCULAR HEMOGLOBIN 32.8 pg (27.5-34.5); MEAN CORPUSCULAR HGB CONC 33.6 g/dL (33.2-36.2); MEAN PLATELET VOLUME 8.6 fL (7.4-10.4); MONOCYTES % (AUTO) 8 % (2-9); NEUTROPHILS % (AUTO) 86 % (42-75); PLATELET COUNT 285 x10^3/uL (130-400); RED BLOOD COUNT 4.93 x10^6/uL (4.38-5.82); RED CELL DISTRIBUTION WIDTH 12.8 % (9.4-14.8)
[2020-10-14 05:57] LABS: CALCIUM 8.7 mg/dL (8.5-10.1); CHLORIDE 105 mmol/L (98-107)
[2020-10-14 06:00] VITALS: BP 110/73
[2020-10-14 06:00] LABS: ANION GAP 3 mmol/L (5-15); CREATININE 1.01 mg/dL (0.7-1.3)
[2020-10-14] MEDS: METOPROLOL TARTRATE 25 MG TAB PO SCH (06:02)
[2020-10-14] MEDS: DEXAMETHASONE 4 MG/ML, 1ML IV SCH (07:43)
[2020-10-14 07:51] VITALS: BP 122/83
[2020-10-14] MEDS: LEVETIRACETAM 500 MG TABLET PO SCH (08:56)
[2020-10-14] MEDS: LOSARTAN 50MG TABLET PO SCH (08:56)
[2020-10-14] MEDS: SENNA/DOCUSATE TABLET PO SCH ×2 (08:56→08:59)
[2020-10-14 13:12] VITALS: BP 113/76
[2020-10-14] MEDS ORDERED: GADOTERATE 7.5 MMOL/15ML SYR ONE (14:32)
[2020-10-14] MEDS ORDERED: DEXAMETHASONE 4 MG/ML, 1ML IV SCH (21:00)
== END 2020-10-14 17:15 | disposition home or self-care (01) | DRG 25 ==
LOC: ED 10-07 00:45 → EDIP 10-07 02:48 → INTOOBSV 10-07 02:48 → 4EST 10-07 04:54 → OBSVTOIN 10-07 11:26 → CCU 10-12 18:07 → 4NW 10-13 17:50
PROVIDERS: ADMIT Family Medicine; ATTEND Internal Medicine
PROC: 00B Central Nervous System and Cranial Nerves, Excision (ICD-10-PCS; principal; 2020-10-12 14:00)
DX: D49.6 Neoplasm of unspecified behavior of brain (principal); G93.6 Cerebral edema; C34.90 Malignant neoplasm of unspecified part of unspecified bronchus or lung; I50.22 Chronic systolic (congestive) heart failure; Z20.822 Contact with and (suspected) exposure to COVID-19; E78.5 Hyperlipidemia, unspecified; R73.9 Hyperglycemia, unspecified; I25.5 Ischemic cardiomyopathy; T38.0X5A Adverse effect of glucocorticoids and synthetic analogues, initial encounter; R74.01 Elevation of levels of liver transaminase levels; R74.8 Abnormal levels of other serum enzymes; Z21 Asymptomatic human immunodeficiency virus [HIV] infection status; I11.0 Hypertensive heart disease with heart failure; I25.10 Atherosclerotic heart disease of native coronary artery without angina pectoris; I25.2 Old myocardial infarction; Z82.49 Family history of ischemic heart disease and other diseases of the circulatory system; Z83.3 Family history of diabetes mellitus; Z87.891 Personal history of nicotine dependence; Z95.5 Presence of coronary angioplasty implant and graft; Z79.899 Other long term (current) drug therapy
CPT/HCPCS: 36415; 87536; 99285; S0020; 70450; 70551; 70552; 70553; 71260; 74177; 80048; 80053; 81001; 82550; 85025; 85610; 85730; 86361; 86850; 86900; 87081; 87635; 88305; 88331; 88341; 88342; 93005; C1713; C1729; G0378; J0171; J0690; J1100; J2250; J2405; J2704; J3010; J3480; Q9967; A4648; A9575; C1781; J0330; J1580; J2370

== ENCOUNTER → 2020-10-25 | Outpatient (CLI) | payer MEDICAID ==
[~2020-10-25] MED LIST changes: +LOSA50TA14 PO
== END | disposition home or self-care (01) ==
LOC: ROC 11:41
PROVIDERS: ATTEND Radiology Radiation Oncology
DX: C79.31 Secondary malignant neoplasm of brain (principal); I25.10 Atherosclerotic heart disease of native coronary artery without angina pectoris; I11.0 Hypertensive heart disease with heart failure; I50.22 Chronic systolic (congestive) heart failure; E78.5 Hyperlipidemia, unspecified; I25.2 Old myocardial infarction; Z79.899 Other long term (current) drug therapy; Z87.891 Personal history of nicotine dependence; Z95.1 Presence of aortocoronary bypass graft
CPT/HCPCS: 99214; G0463

== ENCOUNTER → 2020-11-10 | Outpatient (CLI) | payer MEDICAID ==
[~2020-11-10] MED LIST changes: +GADOTERATE 7.5 MMOL/15ML SYR ONE
== END | disposition home or self-care (01) ==
LOC: RAD 07:02
PROVIDERS: ATTEND Radiology Radiation Oncology
DX: C79.31 Secondary malignant neoplasm of brain (principal)
CPT/HCPCS: 70553; A9575

== ENCOUNTER 2020-11-11 06:16 | Day surgery (SDC) | payer MEDICAID ==
[~2020-11-11] VITALS: Ht 177.8 cm; Wt 77.3 kg
[~2020-11-11 06:16] MED LIST changes: -GADOTERATE 7.5 MMOL/15ML SYR ONE
[2020-11-11 07:14] VITALS: BP 107/75
[2020-11-11] MEDS ORDERED: SODIUM CHLORIDE 0.9% 1,000 ML IV SCH (07:30)
[2020-11-11] MEDS ORDERED: NALOXONE 1 MG/ML, 2ML ONE (08:10)
[2020-11-11] MEDS ORDERED: MIDAZOLAM 1 MG/ML, 5ML ONE (08:10)
[2020-11-11] MEDS ORDERED: FLUMAZENIL 0.1 MG/1 ML, 5ML ONE (08:10)
[2020-11-11] MEDS ORDERED: FENTANYL PF 100 MCG/2ML ONE (08:10)
== END 2020-11-11 11:00 | disposition home or self-care (01) ==
LOC: OUT 06:16
PROVIDERS: ATTEND Internal Medicine Hematology & Oncology
DX: C34.11 Malignant neoplasm of upper lobe, right bronchus or lung (principal); C79.31 Secondary malignant neoplasm of brain; I25.10 Atherosclerotic heart disease of native coronary artery without angina pectoris; I25.2 Old myocardial infarction; Z79.82 Long term (current) use of aspirin; Z79.899 Other long term (current) drug therapy; Z87.891 Personal history of nicotine dependence; Z83.3 Family history of diabetes mellitus; Z82.49 Family history of ischemic heart disease and other diseases of the circulatory system
CPT/HCPCS: 32408; 71045; 88305; 99156; 99157; J2250; J3010; J7030; 77012; 88341; 88342; J2310

== ENCOUNTER 2020-11-17 13:34 | Outpatient (CLI) | payer MEDICAID | END 2020-11-17 23:59 | disposition home or self-care (01) | LOC: PETCFH 13:34 | PROVIDERS: ATTEND Radiology Radiation Oncology | DX: C34.11 Malignant neoplasm of upper lobe, right bronchus or lung (principal); R91.8 Other nonspecific abnormal finding of lung field; I25.10 Atherosclerotic heart disease of native coronary artery without angina pectoris | CPT/HCPCS: 78815; A9552 ==